=== PATIENT | male | born 1950 | race Caucasian/White ===

== ENCOUNTER 2017-05-07 09:21 | Emergency (ER) | payer MEDICARE, OTHER ==
[~2017-05-07] VITALS: Ht 167.6 cm; Wt 85.0 kg
[~2017-05-07 09:21] MED LIST: ASPI81 PO; CRES20TA PO; GLIM1TAB PO; METF-324 PO; NIAC500 PO; NYST500KS SSP; PARO12.5CR PO
[2017-05-07 09:23] VITALS: BP 111/71; PULSE 93; RESP 16; TEMP 98.1; O2SAT 100
[2017-05-07 09:49] VITALS: BP 120/77; PULSE 90; RESP 20; O2SAT 95
[2017-05-07] MEDS ORDERED: SODIUM CHLOR 0.9% 1000 ML INJ 1,000 ML IV SCH (09:58)
[2017-05-07] MEDS ORDERED: ONDANSETRON HCL 4 MG/2 ML VIAL IVP ONE (10:00)
[2017-05-07] MEDS ORDERED: SODIUM CHLORIDE 0.9% FLUSH 10 ML FLUSH IV FLUSH PRN (10:00)
--- NOTE | 2017-05-07 10:01 | PD ---
HPI Chief Complaint: Abdominal Pain Time Seen by Provider: 09:55 Travel History International Travel<30 days: No Contact w/Intl Traveler<30days: No Traveled to known affect area: No History of Present Illness HPI 67-year-old here for evaluation of nausea, vomiting, and abdominal pain. Symptoms started at around 530 this morning. He has had several episodes of bilious emesis. He also had a few loose bowel movements. No history of abdominal surgeries. Significant other reports that she had similar episodes a couple of days ago. He denies chest pain or dyspnea. PFSH Past Medical History Cancer: Yes (prostate) Diabetes: Yes (TYPE 2) Patient Takes Glucophage: Yes Musculoskeletal: Yes (back pain, disc disease) Tetanus Vaccination: < 5 Years ?: Not Social History Alcohol Use: No Tobacco Use: No Substance Use: No Allergies-Medications (Allergen,Severity, Reaction): Coded Allergies: No Known Allergies (Unverified Adverse Reaction, Unknown, 05/07/17) Reported Meds & Prescriptions Reported Meds & Active Scripts Active Zofran Odt (Ondansetron Odt) 4 Mg Tab 4 Mg SL Q8HR PRN Reported Multiple Vitamin 1 Tab 1 Tab PO DAILY Sm Cinnamon (Cinnamon) 500 Mg Cap 1,000 Mg PO DAILY Aspirin Adult Low Strength (Aspirin) 81 Mg Tabdr 81 Mg PO DAILY Invokana (Canagliflozin) 300 Mg Tab 300 Mg PO DAILY Take before 1st meal of day. Crestor (Rosuvastatin Calcium) 20 Mg Tab 20 Mg PO DAILY Paxil CR (Paroxetine HCl) 12.5 Mg Tab 12.5 Mg PO DAILY Trulicity Inj (Dulaglutide Inj) 1.5 Mg/0.5 Ml Pen 1.5 Mg SQ WEEKLY Metformin (Metformin HCl) 1,000 Mg Tab 1,000 Mg PO BID Allopurinol 100 Mg Tab 100 Mg PO DAILY Review of Systems Except as stated in HPI: all other systems reviewed are Neg Physical Exam Narrative GENERAL: Well-developed, well-nourished, comfortable, no apparent distress. SKIN: Focused skin assessment warm/dry. HEAD: Atraumatic. Normocephalic. EYES: Pupils equal and round. No scleral icterus. No injection or drainage. ENT: No nasal bleeding or discharge. Mucous membranes pink and dry. NECK: Trachea midline. No JVD. CARDIOVASCULAR: Regular rate and rhythm. RESPIRATORY: No accessory muscle use. Clear to auscultation. Breath sounds equal bilaterally. GASTROINTESTINAL: Abdomen soft, nondistended. Mild diffuse tenderness without peritoneal signs. MUSCULOSKELETAL: No obvious deformities. No clubbing. No cyanosis. No edema. NEUROLOGICAL: Awake and alert. No obvious cranial nerve deficits. Motor grossly within normal limits. Normal speech. PSYCHIATRIC: Appropriate mood and affect; insight and judgment normal. Data Data Last Documented VS Vital Signs Date Time Temp Pulse Resp B/P (MAP) Pulse Ox O2 Delivery O2 Flow Rate FiO2 05/07/17 11:20 82 18 113/62 (79) 95 Room Air 05/07/17 09:23 98.1 Orders Orders Complete Blood Count With Diff (05/07/17 09:58) Comprehensive Metabolic Panel (05/07/17 09:58) Lipase (05/07/17 09:58) Prothrombin Time / Inr (Pt) (05/07/17 09:58) Act Partial Throm Time (Ptt) (05/07/17 09:58) Ct Abd/Pel W Iv Contrast(Rout) (05/07/17 09:58) Iv Access Insert/Monitor (05/07/17 09:58) Ecg Monitoring (05/07/17 09:58) Oximetry (05/07/17 09:58) Ondansetron Inj (Zofran Inj) (05/07/17 10:00) Sodium Chlor 0.9% 1000 Ml Inj (Ns 1000 M (05/07/17 09:58) Sodium Chloride 0.9% Flush (Ns Flush) (05/07/17 10:00) Electrocardiogram (05/07/17 09:59) Ckmb (Isoenzyme) Profile (05/07/17 09:59) Troponin I (05/07/17 09:59) Sodium Chlor 0.9% 1000 Ml Inj (Ns 1000 M (05/07/17 11:15) CKMB (05/07/17 10:12) CKMB% (05/07/17 10:12) Iohexol 350 Inj (Omnipaque 350 Inj) (05/07/17 12:00) Cbc No Diff, Includes Plts (05/07/17 12:38) Lipase (05/07/17 12:38) Ed Discharge Order (05/07/17 13:24) Labs Laboratory Tests Test 4/1/18 10:12 05/07/17 12:42 White Blood Count 21.4 TH/MM3 15.8 TH/MM3 Red Blood Count 5.28 MIL/MM3 4.69 MIL/MM3 Hemoglobin 16.0 GM/DL 14.1 GM/DL Hematocrit 47.1 % 42.0 % Mean Corpuscular Volume 89.4 FL 89.6 FL Mean Corpuscular Hemoglobin 30.3 PG 30.2 PG Mean Corpuscular Hemoglobin Concent 33.9 % 33.6 % Red Cell Distribution Width 14.1 % 14.1 % Platelet Count 262 TH/MM3 227 TH/MM3 Mean Platelet Volume 8.9 FL 8.3 FL Neutrophils (%) (Auto) 91.6 % Lymphocytes (%) (Auto) 2.4 % Monocytes (%) (Auto) 5.8 % Eosinophils (%) (Auto) 0.0 % Basophils (%) (Auto) 0.2 % Neutrophils # (Auto) 19.6 TH/MM3 Lymphocytes # (Auto) 0.5 TH/MM3 Monocytes # (Auto) 1.2 TH/MM3 Eosinophils # (Auto) 0.0 TH/MM3 Basophils # (Auto) 0.0 TH/MM3 CBC Comment DIFF FINAL Differential Comment Prothrombin Time 10.7 SEC Prothromb Time International Ratio 1.1 RATIO Activated Partial Thromboplast Time 22.4 SEC Blood Urea Nitrogen 20 MG/DL Creatinine 0.90 MG/DL Random Glucose 203 MG/DL Total Protein 8.0 GM/DL Albumin 4.4 GM/DL Calcium Level 9.2 MG/DL Alkaline Phosphatase 71 U/L Aspartate Amino Transf (AST/SGOT) 42 U/L Alanine Aminotransferase (ALT/SGPT) 32 U/L Total Bilirubin 1.6 MG/DL Sodium Level 139 MEQ/L Potassium Level 4.1 MEQ/L Chloride Level 107 MEQ/L Carbon Dioxide Level 19.8 MEQ/L Anion Gap 12 MEQ/L Estimat Glomerular Filtration Rate 84 ML/MIN Total Creatine Kinase 136 U/L Creatine Kinase MB 1.2 NG/ML Troponin I LESS THAN 0.02 NG/ML Lipase 777 U/L 441 U/L [facility] Medical Decision Making Medical Screen Exam Complete: Yes Emergency Medical Condition: Yes Interpretation(s) EKG: Sinus, rate 80, normal axis, normal intervals, no acute ischemic abnormality. Differential Diagnosis Gastroenteritis, gastritis, pancreatitis, hepatobiliary disease, appendicitis Narrative Course Vital signs reviewed. CBC: WBC 21.4 with 92% neutrophils. CMP is remarkable for random glucose 203, T bili 1.6, AST 42, Lipase is 777. Cardiac enzymes are negative. CT abdomen pelvis: CONCLUSION: 1. Nonobstructive bowel gas pattern with no inflammatory change. 2. Unremarkable gallbladder. 3. Cysts in left kidney. 4. Moderate hepatic steatosis. The patient and the patient's were made aware of all findings. He was given 2 L normal saline IV and Zofran and feels somewhat improved. He will be given Gatorade and CBC and lipase will be repeated. Patient was able to tolerate a full bottle of Gatorade without vomiting. Repeat CBC shows slight improvement in WBC count to 15.8. Lipase is also improved to 441. Initial lab abnormalities are likely from stress from vomiting. Patient likely has a gastroenteritis and is stable for discharge home with outpatient follow-up with his primary care physician this week. He was advised on when to return to the emergency department. He verbalizes understanding and agreement with plan. Diagnosis Primary Impression: Gastroenteritis Referrals: Primary Care Physician 3 days Additional Instructions: Follow-up with your primary care physician this week. Stay hydrated with plenty of fluids. Return to the emergency department for worsening symptoms or any other concerns. Scripts Dicyclomine (Bentyl) 10 Mg Cap 10 MG PO TID Y for Bowel Management, #20 CAP 0 Refills Prov: Elias Minor MD 05/07/17 Ondansetron Odt (Zofran Odt) 4 Mg Tab 4 MG SL Q8HR Y for Nausea/Vomiting, #20 TAB 0 Refills Prov: Elias Minor MD 05/07/17 Disposition: 01 DISCHARGE HOME Condition: Stable Elias Minor MD May 07, 2017 10:01
[2017-05-07 10:32] VITALS: RESP 18; O2SAT 95
[2017-05-07 10:35] LABS: AUTOMATED NEUTROPHIL # 19.6 TH/MM3 (1.8-7.7); BASOPHIL % 0.2 % (0.0-2.0); HEMATOCRIT 47.1 % (39.0-51.0); LYMPH % 2.4 % (9.0-44.0); LYMPHOCYTE # 0.5 TH/MM3 (1.0-4.8); MEAN CELL VOLUME 89.4 FL (80.0-100.0); MEAN CORPUSCULAR HEMOGLOBIN 30.3 PG (27.0-34.0); MEAN CORPUSCULAR HGB CONC 33.9 % (32.0-36.0); MEAN PLATELET VOLUME 8.9 FL (7.0-11.0); MONO % 5.8 % (0.0-8.0); MONOCYTE # 1.2 TH/MM3 (0-0.9); NEUT % 91.6 % (16.0-70.0); PLATELET COUNT 262 TH/MM3 (150-450); RED BLOOD COUNT 5.28 MIL/MM3 (4.50-5.90); RED CELL DISTRIBUTION WIDTH 14.1 % (11.6-17.2); WHITE BLOOD COUNT 21.4 TH/MM3 (4.0-11.0)
[2017-05-07 10:45] LABS: INTERNATIONAL NORMALIZED RATIO 1.1 RATIO; PROTHROMBIN TIME - PATIENT 10.7 SEC (9.8-11.6)
[2017-05-07 11:06] LABS: ALBUMIN 4.4 GM/DL (3.4-5.0); AST (GOT) 42 U/L (15-37); BICARBONATE 19.8 MEQ/L (21.0-32.0); BLOOD UREA NITROGEN 20 MG/DL (7-18); CALCIUM 9.2 MG/DL (8.5-10.1); CHLORIDE 107 MEQ/L (98-107); GLOMERULAR FILTRATION RATE 84 ML/MIN (>89); GLUCOSE,RANDOM 203 MG/DL (74-106); SODIUM (NA) 139 MEQ/L (136-145)
[2017-05-07 11:10] LABS: ALKALINE PHOSPHATASE 71 U/L (45-117); ALT (GPT) 32 U/L (12-78); TOTAL BILIRUBIN ADULT 1.6 MG/DL (0.2-1.0); TROPONIN I LESS THAN 0.02 NG/ML (0.02-0.05)
[2017-05-07] MEDS ORDERED: SODIUM CHLOR 0.9% 1000 ML INJ 1,000 ML IV ONE (11:15)
[2017-05-07 11:20] VITALS: BP 113/62; PULSE 82; RESP 18; O2SAT 95
[2017-05-07] MEDS ORDERED: IOHEXOL 350 MG/ML 10 ML VIAL (for RAD DIAG) IVCONTRAST ONE (12:00)
--- NOTE | 2017-05-07 12:16 | RADRPT ---
EXAM DATE/TIME: 05/07/2017 11:48 [facility] COMPARISON: No previous studies available for comparison. INDICATIONS : Abdominal pain with nausea, vomiting. IV CONTRAST: 100 cc Omnipaque 350 (iohexol) IV ORAL CONTRAST: No oral contrast ingested. RADIATION DOSE: 11.18 CTDIvol (mGy) MEDICAL HISTORY : Carcinoma, prostate. Diabetes SURGICAL HISTORY : none listed ENCOUNTER: Initial ACUITY: 1 day PAIN SCALE: 6/10 LOCATION: diffuse abdomen TECHNIQUE: Volumetric scanning of the abdomen and pelvis was performed. Using automated exposure control and ad justment of the mA and/or kV according to patient size, radiation dose was kept as low as reasonably achievable to obtain optimal diagnostic quality images. DICOM format image data is available electro nically for review and comparison. FINDINGS: LOWER LUNGS: The visualized lower lungs are clear. LIVER: Homogeneous density without lesion. There is no dilation of the biliary tree. No calcified gallston es. There is diffuse mild hepatic steatosis. The gallbladder is unremarkable. SPLEEN: Normal size without lesion. PANCREAS: Within normal limits. KIDNEYS: Normal in size and shape. There is no solid mass, stone or hydronephrosis. There are 2 simple cysts in the left kidney. ADRENAL GLANDS: Within normal limits. VASCULAR: There is no aortic aneurysm. BOWEL/MESENTERY: No oral contrast was given limiting the sensitivity. The stomach, small bowel, and colon demonstrate no acute abnormality. There is no free intraperitoneal air or fluid. ABDOMINAL WALL: Within normal limits. RETROPERITONEUM: There is no lymphadenopathy. BLADDER: No wall thickening or mass. REPRODUCTIVE: Within normal limits. INGUINAL: There is no lymphadenopathy or hernia. MUSCULOSKELETAL: Within normal limits for patient age. CONCLUSION: 1. Nonobstructive bowel gas pattern with no inflammatory change. 2. Unremarkable gallbladder. 3. Cysts in left kidney. 4. Moderate hepatic steatosis. Shakeel Madsen MD on May 07, 2017 at 12:09 Board Certified Radiologist. This report was verified electronically.
--- NOTE | 2017-05-07 12:20 | EKG ---
Date Performed: 05/07/2017 Time Performed: 10:15:15 PTAGE: 67 years EKG: Sinus rhythm NORMAL ECG NO PREVIOUS TRACING DOCTOR: Adebayo Solorzano Interpretating Date/Time 05/07/2017 12:16:24
[2017-05-07] MEDS ORDERED: DULA0.5I SQ (12:24)
[2017-05-07] MEDS ORDERED: PARO12.5CR PO (12:24)
[2017-05-07] MEDS ORDERED: CANA300T PO (12:24)
[2017-05-07] MEDS ORDERED: ALLO100T PO (12:24)
[2017-05-07] MEDS ORDERED: MULTTAB67 PO (12:24)
[2017-05-07] MEDS ORDERED: ASPI81TA16 PO (12:24)
[2017-05-07] MEDS ORDERED: CINN500C14 PO (12:24)
[2017-05-07] MEDS ORDERED: METF1000 PO (12:24)
[2017-05-07] MEDS ORDERED: ROSU20 PO (12:24)
[2017-05-07 12:50] LABS: HEMOGLOBIN 14.1 GM/DL (13.0-17.0); MEAN CELL VOLUME 89.6 FL (80.0-100.0); MEAN CORPUSCULAR HEMOGLOBIN 30.2 PG (27.0-34.0); MEAN CORPUSCULAR HGB CONC 33.6 % (32.0-36.0); MEAN PLATELET VOLUME 8.3 FL (7.0-11.0); PLATELET COUNT 227 TH/MM3 (150-450); RED BLOOD COUNT 4.69 MIL/MM3 (4.50-5.90); RED CELL DISTRIBUTION WIDTH 14.1 % (11.6-17.2); WHITE BLOOD COUNT 15.8 TH/MM3 (4.0-11.0)
[2017-05-07] MEDS ORDERED: ZOFR4TAB3 SL (13:23)
[2017-05-07] MEDS ORDERED: DICY10 PO (13:31)
== END 2017-05-07 13:41 | disposition home or self-care (01) ==
LOC: NEPE 09:21
DX: K52.9 Noninfective gastroenteritis and colitis, unspecified (principal); N28.1 Cyst of kidney, acquired; K76.0 Fatty (change of) liver, not elsewhere classified; E11.9 Type 2 diabetes mellitus without complications; Z85.46 Personal history of malignant neoplasm of prostate; Z79.82 Long term (current) use of aspirin; Z79.899 Other long term (current) drug therapy
CPT/HCPCS: 74177; 80053; 82550; 82552; 83690; 84484; 85025; 85027; 85610; 85730; 93005; 96374; 99285; J2405; J7030; Q9967